=== PATIENT | male | born 1980 | race Caucasian/White ===

== ENCOUNTER 2019-08-15 15:54 | Emergency (ER) | payer OTHER ==
[2019-08-15 16:18] VITALS: BP 135/79; PULSE 70; TEMP 99.5; BMI 26.3
[2019-08-15] MEDS ORDERED: ACETAMINOPHEN 500 MG TABLET (FP) PO ONE (16:49)
--- NOTE | 2019-08-15 16:57 | PDOC ---
History of Present Illness - General Chief Complaint: Headache Stated Complaint: HEADACHE Time Seen by Provider: 08/15/19 16:34 History Source: Patient Exam Limitations: Language Barrier - History of Present Illness Initial Comments: 08/15/19 16:58 38y M with no significant PMH presenting to the ER for headache x3 days getting worse. He says he has been taking Excedrin BID and it helps the pain but the headache returns. He describes the headache as a pounding sensation on the top of his head. He also endorses joint pains and body aches. He had a history of migraine headache 10y ago but this one feels different. Denies fever, cough, sob, back pain, abdominal pain, n/v/d, changes in vision, weakness, numbness/tingling, sick contacts. He works daily and does not know of sick contacts at work. PMD: none PMH: none PSH: none Meds: none Allergies: nkda Social: denies Past History - Past Medical History Allergies/Adverse Reactions: Allergies Allergy/AdvReac Type Severity Reaction Status Date / Time No Known Allergies Allergy Verified 08/15/19 16:17 COPD: No - Psycho Social/Smoking Cessation Hx Smoking History: Never smoked Review of Systems - Review of Systems Constitutional: No: Symptoms Reported HEENTM: No: Symptoms Reported Respiratory: No: Symptoms reported Cardiac (ROS): No: Symptoms Reported ABD/GI: No: Symptoms Reported : No: Symptoms Reported Musculoskeletal: No: Symptoms Reported Integumentary: No: Symptoms Reported Neurological: Yes: Headache *Physical Exam - Vital Signs Last Vital Signs Temp Pulse Resp BP Pulse Ox 99.5 F 70 18 135/79 99 08/15/19 16:15 08/15/19 16:15 08/15/19 16:15 08/15/19 16:15 08/15/19 16:15 - Physical Exam General Appearance: Yes: Nourished, Appropriately Dressed. No: Apparent Distress HEENT: positive: EOMI, JABARI. negative: Scleral Icterus (R), Scleral Icterus (L), Sinus Tenderness, Hearing Decreased Neck: positive: Trachea midline, Supple. negative: Lymphadenopathy (R) Respiratory/Chest: positive: Lungs Clear, Normal Breath Sounds. negative: Crackles, Rales, Rhonchi, Stridor, Wheezing Cardiovascular: positive: Regular Rhythm, Regular Rate, S1, S2. negative: Edema, JVD, Murmur Comments:: 08/15/19 18:20 radial pulses 2+ Gastrointestinal/Abdominal: positive: Soft. negative: Tender Musculoskeletal: negative: CVA Tenderness, Decreased Range of Motion, Muscle Spasm, Vertebral Tenderness Integumentary: positive: Normal Color, Dry, Warm Neurologic: positive: land leasing examiner II-XII NML intact, Fully Oriented, Alert, Normal Mood/Affect, Normal Response, Motor Strength 5/5 Medical Decision Making - Medical Decision Making 08/15/19 18:21 38y M presenting with WALLER vitals wnl low suspicion for SAH, low suspicion for meningitis, low suspicion for mass/malignancy. pain is alleviated by medication. does not require further imaging at this time (normal neurological exam, no thunderclap WALLER, no fever) does not require labs at this time. likely COVID will give PO tylenol and COVID precautions. pt agrees to plan. given referral to neurology. dispo: home Discharge - Discharge Information Problems reviewed: Yes Clinical Impression/Diagnosis: Headache Qualifiers: Headache type: tension-type Headache chronicity pattern: acute headache Intrac tability: not intractable Qualified Code(s): G44.209 - Tension-type headache, unspecified, not intractable Condition: Good Disposition: HOME - Admission No - Follow up/Referral Referrals: [facility] [facility] [place] [Provider Group] Dora Vila MD [Staff Physician] - Anatoly Cummings MD [Staff Physician] - Bijal Freed MD [Staff Physician] - Chinmay Calderón MD [Staff Physician] - Jamar Ornelas MD [Staff Physician] - - Patient Discharge Instructions Patient Printed Discharge Instructions: DI for Headache, R-Coronavirus Instructions, R-[facility] COVID-19 Isolation Protocol Additional Instructions: Hoy te vieron en la anat de emergencias por shirley de garett. Es posible que tenga coronavirus. Recomiendo beber muchos lquidos y usar vicky mscara cuando est en la casa. Es posible que otras personas en el [facility] tengan el virus. Recomiendo quedarse en casa y evitar el contacto prolongado con las personas vulnerables. Puede kelly 1 gramo de Tylenol cada 8 horas para el dolor de garett. Recibi vicky dosis aqu para que pueda kelly otra dosis dentro de 8 horas. Regrese a la anat de emergencias si tiene un dolor de garett que empeora a pesar de kelly medicamentos, tiene dificultad para respirar, desarrolla fiebre kyrie o si se desarrolla algn sntoma nuevo o preocupante. Kaylah You were seen in the ER today for headaches. It is possible that you have coronavirus. I recommend drinking plenty of fluids, and wearing a mask when in the house. It is possible that others in the household have the virus as well. I recommend staying at home and avoiding prolonged contact with those that are vulnerable. You can take 1 gram of Tylenol every 8 hours for the headache. You received a dose here so you can take another dose 8 hours from now. Please come back to the ER if you have worsening headache despite taking medications, you have difficulty breathing, you develop high fevers or if any new or concerning symptom develops. Thank you Print Language: SERBIAN - Post Discharge Activity Work/Back to School Note: Back to Work
--- NOTE | 2019-08-15 17:04 | PDOC ---
Attending Attestation - Resident Resident Name: Wendi Cameron - ED Attending Attestation I have performed the following: I have examined & evaluated the patient, The case was reviewed & discussed with the resident, I agree w/resident's findings & plan Discharge - Discharge Information Clinical Impression/Diagnosis: Headache Qualifiers: Headache type: tension-type Headache chronicity pattern: acute headache Intractability: not intractable Qualified Code(s): G44.209 - Tension-type headache, unspecified, not intractable Condition: Good Disposition: HOME - Follow up/Referral Referrals: [facility] [place] [Provider Group] Jamar Ornelas MD [Staff Physician] - Chinmay Calderón MD [Staff Physician] - Bijal Freed MD [Staff Physician] - Anatoly Cummings MD [Staff Physician] - Dora Vila MD [Staff Physician] - - Patient Discharge Instructions Patient Printed Discharge Instructions: DI for Headache, [facility]-Coronavirus Instructions, [facility] COVID-19 Isolation Protocol Additional Instructions: Hoy te vieron en la anat de emergencias por shirley de garett. Es posible que tenga coronavirus. Recomiendo beber muchos lquidos y usar vicky mscara cuando est en la casa. Es posible que otras personas en el [facility] tengan el virus. Recomiendo quedarse en casa y evitar el contacto prolongado con las personas vulnerables. Puede kelly 1 gramo de Tylenol cada 8 horas para el dolor de garett. Recibi vicky dosis aqu para que pueda kelly otra dosis dentro de 8 horas. Regrese a la anat de emergencias si tiene un dolor de garett que empeora a pesar de kelly medicamentos, tiene dificultad para respirar, desarrolla fiebre kyrie o si se desarrolla algn sntoma nuevo o preocupante. Kaylah You were seen in the ER today for headaches. It is possible that you have coronavirus. I recommend drinking plenty of fluids, and wearing a mask when in the house. It is possible that others in the household have the virus as well. I recommend staying at home and avoiding prolonged contact with those that are vulnerable. You can take 1 gram of Tylenol every 8 hours for the headache. You received a dose here so you can take another dose 8 hours from now. Please come back to the ER if you have worsening headache despite taking medica tions, you have difficulty breathing, you develop high fevers or if any new or concerning symptom develops. Thank you Print Language: HUNGARIAN - Post Discharge Activity Work/Back to School Note: Back to Work
[2019-08-15] MEDS ORDERED: ACETAMINOPHEN 325 MG TABLET (FP) ONE ×2 (17:10→17:11)
== END 2019-08-15 17:41 | disposition home or self-care (01) ==
LOC: JER 15:54
DX: G44.209 Tension-type headache, unspecified, not intractable (principal)
CPT/HCPCS: 99283-25